=== PATIENT | female | born 1950 | race Caucasian/White ===

== ENCOUNTER 2021-08-07 10:36 | Observation (INO) ==
[2021-08-07] MEDS ORDERED: ZOFRAN INJ 4 MG VIAL IVP PRN (12:07)
[2021-08-07 12:49] LABS: BASOPHILS # (AUTO) 0.1 X10^3/uL (0.0-0.1); BASOPHILS % (AUTO) 0.6 % (0.2-1.0); HEMATOCRIT 40.3 % (36.0-47.0); HEMOGLOBIN 13.8 g/dL (12.0-16.0); LYMPHOCYTES % (AUTO) 18.7 % (21.0-51.0); MEAN CORPUSCULAR HEMOGLOBIN 30.3 pg (27.0-34.0); MEAN CORPUSCULAR HGB CONC 34.1 g/dL (33.0-35.0); MEAN CORPUSCULAR VOLUME 88.8 fL (80.0-100.0); MEAN PLATELET VOLUME 7.4 fL (7.4-11.0); MONOCYTES # (AUTO) 0.7 x10^3/uL (0.3-0.8); MONOCYTES % (AUTO) 6.1 % (0.0-13.0); NEUTROPHILS # (AUTO) 8.2 x10^3/uL (2.2-4.8); NEUTROPHILS % (AUTO) 74.6 % (42.0-75.0); RED BLOOD COUNT 4.54 X10^6/uL (3.5-5.4); RED CELL DISTRIBUTION WIDTH 14.2 % (11.6-16.5)
[2021-08-07] MEDS: PEPCID 20 MG VIAL 20 MG in NS 50 ML IV 50 ML IV SCH ×2 (12:51→20:59)
[2021-08-07] MEDS: NS 1,000 ML IV 1,000 ML IV SCH (12:51)
[2021-08-07] MEDS: PROTONIX INJ 40 MG VIAL IVP SCH ×2 (12:51→20:59)
[2021-08-07 12:55] VITALS: BMI 27.6
[2021-08-07 14:29] LABS: ALANINE AMINOTRANSFERASE 26 Units/L (12-78); ALBUMIN 3.9 g/dL (3.4-5.0); ALKALINE PHOSPHATASE 73 Units/L (46-116); AMYLASE 41 Units/L (25-115); ASPARTATE AMINO TRANSFERASE 20 Units/L (15-37); BLOOD UREA NITROGEN 21 mg/dL (7-18); CALCIUM 9.3 mg/dL (8.5-10.1); CARBON DIOXIDE 28.1 mmol/L (21-32); CHLORIDE 107 mmol/L (98-107); CREATININE 0.94 mg/dL (0.55-1.02); LIPASE 99 Units/L (73-393); SODIUM 146 mmol/L (136-145); TOTAL PROTEIN 7.9 g/dL (6.4-8.2); eGFR NON BLACK RACES > 60 (>60)
--- NOTE | 2021-08-07 16:24 | CT ---
HISTORYnausea, vomiting, adb painSTUDYABDOMEN/PELVIS WITH CONCOMPARISONTECHNIQUEMultiple axial images of the abdomen and pelvis were obtained from the lung bases to the pubic symphysis after the administration of IV contrast. Dose reduction techniques including Automated Exposure Control (AEC) and adjustment of mA and kV were utilized.FINDINGSThere is bronchial wall thickening and basilar atelectasis. There is no effusion. Heart size is normal. There is a small hiatal hernia. There is wall thickening in the distal esophagus suggesting reflux esophagitis. There is diffuse fatty infiltration of the liver. This is most pronounced along the gallbladder fossa. Gallbladder is normal. The pancreas is mildly atrophic. The spleen, adrenal glands, and kidneys are normal. Small bowel loops and appendix are normal. Large bowel loops are unremarkable. Urinary bladder is normal. Uterus is been removed. There is no adnexal mass. There is a T9 compression fracture which appears to be older. There is no worrisome bone marrow lesion.IMPRESSIONSmall hiatal hernia. Esophageal wall thickening suggesting esophagitis. Mild fatty infiltration of the liver.Electronically signed by: Willie Mckeon (Aug 07, 2021 16:22:41)
[2021-08-08] MEDS: NS 1,000 ML IV 1,000 ML IV SCH (03:21)
[2021-08-08 06:01] LABS: BILIRUBIN,URINE NEGATIVE (NEGATIVE); BLOOD/HEMOGLOBIN,URINE 3+ (NEGATIVE); GLUCOSE, URINE NEGATIVE (NEGATIVE); KETONES,URINE 2+ (NEGATIVE); LEUKOCYTE ESTERASE ,URINE 3+ (NEGATIVE); NITRITES,URINE NEGATIVE (NEGATIVE); PROTEIN,URINE 2+ (NEGATIVE); UROBILINOGEN,URINE NORMAL (NORMAL)
[2021-08-08 06:18] LABS: APPEARANCE,URINE HAZY (CLEAR); BACTERIA,URINE TRACE /HPF (NEGATIVE); COLOR,URINE YELLOW (YELLOW); SQUAMOUS EPITHELIAL CELL,UR MODERATE /HPF (NEGATIVE)
[2021-08-08 06:48] LABS: BASOPHILS # (AUTO) 0.1 X10^3/uL (0.0-0.1); BASOPHILS % (AUTO) 0.8 % (0.2-1.0); EOSINOPHILS % (AUTO) 0.5 % (0.9-2.9); HEMATOCRIT 36.2 % (36.0-47.0); HEMOGLOBIN 12.3 g/dL (12.0-16.0); LYMPHOCYTES # (AUTO) 1.9 X10^3/uL (1.3-2.9); LYMPHOCYTES % (AUTO) 22.8 % (21.0-51.0); MEAN CORPUSCULAR HEMOGLOBIN 30.2 pg (27.0-34.0); MEAN CORPUSCULAR HGB CONC 34.1 g/dL (33.0-35.0); MEAN CORPUSCULAR VOLUME 88.5 fL (80.0-100.0); MEAN PLATELET VOLUME 7.5 fL (7.4-11.0); MONOCYTES # (AUTO) 0.6 x10^3/uL (0.3-0.8); MONOCYTES % (AUTO) 7.7 % (0.0-13.0); NEUTROPHILS # (AUTO) 5.6 x10^3/uL (2.2-4.8); NEUTROPHILS % (AUTO) 68.2 % (42.0-75.0); RED BLOOD COUNT 4.09 X10^6/uL (3.5-5.4); RED CELL DISTRIBUTION WIDTH 13.9 % (11.6-16.5); WHITE BLOOD COUNT 8.3 X10^3/uL (3.6-10.0)
[2021-08-08 07:19] LABS: ALANINE AMINOTRANSFERASE 20 Units/L (12-78); ALBUMIN 3.3 g/dL (3.4-5.0); ALKALINE PHOSPHATASE 70 Units/L (46-116); ASPARTATE AMINO TRANSFERASE 22 Units/L (15-37); BLOOD UREA NITROGEN 19 mg/dL (7-18); CALCIUM 8.7 mg/dL (8.5-10.1); CARBON DIOXIDE 24.6 mmol/L (21-32); CHLORIDE 109 mmol/L (98-107); COR CA(FOR HYPOALB) 9.3 mg/dL (8.5-10.1); CREATININE 0.82 mg/dL (0.55-1.02); SODIUM 145 mmol/L (136-145); TOTAL PROTEIN 6.9 g/dL (6.4-8.2); eGFR NON BLACK RACES > 60 (>60)
[2021-08-08 08:33] VITALS: BP 136/68
[2021-08-08] MEDS: PEPCID 20 MG VIAL 20 MG in NS 50 ML IV 50 ML IV SCH (08:33)
[2021-08-08] MEDS: PROTONIX INJ 40 MG VIAL IVP SCH (08:33)
--- NOTE | 2021-08-16 11:47 | DR.CARTERS ---
Short Stay Summary - Admission Date Date of Admission: 08/07/21 - Discharge Date Discharge Date: 08/08/21 - Admission Diagnoses (1) Intractable nausea and vomiting Status: Acute (2) Esophagitis Status: Acute (3) Abdominal pain Status: Acute - Hospital Course Hospital Course: IS A 71 YEAR OLD PATIENT OF OURS. SHE PRESENTED TO THE OFFICE WITH COMPLAINTS OF UNCONTROLLABLE NAUSEA AND VOMITING, WEAKNESS, AND DIFFUSE ABDOMINAL PAIN. PATIENT REPORTED THAT SHE HAS BEEN UNABLE TO HOLD DOWN ANY FOODS OR LIQUIDS FOR THE PAST SEVERAL DAYS. SHE HAS TAKEN ZOFRAN AND PHENERGAN AT HOME WITHOUT IMPROVEMENT IN SYMPTOMS. SHE DESCRIBES ABDOMINAL PAIN CRAMPING, INTERMITTENT, AND RATED IT A 6/10. WE ADMITTED PATIENT TO THE HOSPITAL FOR FURTHER EVALUATION AND TREATMENT OF INTRACTABLE N/V/ABDOMINAL PAIN. ON ARRIVAL TO THE HOSPITAL, VITALS WERE 98.3-83-20-94%-160/69. LABS WERE OBTAINED. WBC 11.0, HGB 13.8, HCT 40.3, SODIUM 146, POTASSIUM 4.2, CHLORIDE 107, BUN 21, CREATININE 0.94, GLUCOSE 92, AST 20, ALT 26, ALK PHOS 73, TOTAL PROTEIN 7.9, ALBUMIN 3.9, AMYLASE 41, LIPASE 99. COVID-19 NEGATIVE. BLOOD CULTURES WERE SET UP. WE OBTAINED AN ABDOMEN/PELVIS CT WITH CONTRAST. IT REVEALED: Small hiatal hernia. Esophageal wallthickening suggesting esophagitis. Mild fatty infiltration of the liver. SHE WAS STARTED ON NORMAL SALINE AT 80 ML/HR, PEPCID 20MG IV Q12H, PROTONIX 40MG IV BID, ZOFRAN 4MG IV Q4H PRN. OTHERWISE, WE PLANNED TO FOLLOW-UP WITH AM LABS AND CONTINUE TO MONITOR. ON THE MORNING FOLLOWING ADMISSION, PATIENT IS ALERT AND ORIENTED, LYING IN BED ON MORNING ROUNDS. SHE REPORTS FEELING WELL AND DENIES COMPLAINTS THIS MORNING. SHE REPORTS BEING ABLE TO HOLD DOWN LIQUIDS THROUGHOUT THE NIGHT. ON EXAMINATION, HEART IS REGULAR IN RATE AND RHYTHM. BILATERAL LUNGS CLEAR TO AUSCULTATION. ABDOMEN ROUND, SOFT, AND NON-TENDER WITH NORMAL BOWEL SOUNDS NOTED IN ALL QUADRANTS. HER VITALS ON MORNING ROUNDS ARE: 97.9-72-18-92%-136/68. LABS WERE OBTAINED. ABNORMAL LAB VALUES INCLUDE THE FOLLOWING: POTASSIUM 3.3, CHLORIDE 109, ALBUMIN 3.3. WE PLANNED FOR DISCHARGE. INSTRUCTIONS FOR MEDICATIONS AND FOLLOW-UP WERE DISCUSSED WITH PATIENT AND HER SPOUSE. THEY VERBALIZED UNDERSTANDING OF ALL ORDERS. SHE WAS GIVEN PRESCRIPTIONS FOR PEPCID 40MG PO BID, PROTONIX 40MG PO BID, AND HYCOSAMINE SULFATE 15ML PO QID. SHE IS INSTRUCTED TO STOP THE OMEPRAZOLE THAT SHE WAS TAKING. FOLLOW-UP APPOINTMENT AT MY OFFICE IS 08/15/21 AT 13:30. PATIENT DISCHARGED HOME WITH SPOUSE IN STABLE, IMPROVED CONDITION. TIME SPENT ON CLINICAL ASSESSMENT, REVIEWING LABS AND IMAGING, DECISION MAKING, DISCHARGE INSTRUCTIONS, PREPARING DISCHARGE PAPERS, AND DOCUMENTATION GREATER THAN 75 MINUTES. - Discharge Medications Discharge Medications: Home Medication List Restasis 1 drp OPHTHALMIC (EYE) BID 08/07/21 [History] azelastine 2 mcg INTRANASAL BID 08/07/21 [History] cetirizine 10 mg PO DAILY 08/07/21 [History] fenofibrate micronized 134 mg PO DAILY 08/07/21 [History] fexofenadine [Allergy Relief (fexofenadine)] 180 mg PO DAILY 08/07/21 [History] fluticasone propionate 1 mcg INTRANASAL BID 08/07/21 [History] montelukast 10 mg PO DAILY 08/07/21 [History] olmesartan 5 mg PO DAILY 08/07/21 [History] ondansetron HCl 4 mg PO PRN PRN 08/07/21 [History] promethazine 25 mg PO Q6HR PRN 08/07/21 [History] tizanidine 4 mg PO TID PRN 08/07/21 [History] tramadol 50 mg PO PRN PRN 08/07/21 [History] famotidine [Pepcid] 40 mg PO BID #60 tab 08/08/21 [Rx] hyoscyamine sulfate 15 ml PO QID #240 ml 08/08/21 [Rx] pantoprazole 40 mg PO BID #60 tab 08/08/21 [Rx] Prescriptions: famotidine [Pepcid] Jitendra Cooper hyoscyamine sulfate Jitendra Cooper pantoprazole Jitendra Cooper - Discharge Plan Disposition: 01 HOME, SELF-CARE Condition: Stable Prescriptions: famotidine [Pepcid] 40 mg PO BID #60 tab hyoscyamine sulfate 15 ml PO QID #240 ml pantoprazole 40 mg PO BID #60 tab - Follow up/Referrals Follow up/Referrals: Jitendra Cooper [Primary Care Provider] - 08/15/21 1:30 pm - Instructions Instructions: Soft-Food Eating Plan, Nausea and Vomiting, Adult, [id number], Hypertension, Adult, [id number], Rehydration, Elderly Additional Instructions: DIET TOLERATED. ACTIVITY TOLERATED. Forms: Precautions for [facility], Patient Portal, Social Distancing
== END 2021-08-08 13:05 | disposition home or self-care (01) ==
LOC: MED/SURG
PROVIDERS: ADMIT Internal Medicine; ATTEND Internal Medicine
DX: R10.84 Generalized abdominal pain; K21.00 Gastro-esophageal reflux disease with esophagitis, without bleeding; Z20.822 Contact with and (suspected) exposure to COVID-19; E87.0 Hyperosmolality and hypernatremia; B96.29 Other Escherichia coli [E. coli] as the cause of diseases classified elsewhere; K44.9 Diaphragmatic hernia without obstruction or gangrene; R11.2 Nausea with vomiting, unspecified; B96.4 Proteus (mirabilis) (morganii) as the cause of diseases classified elsewhere